=== PATIENT | female | born 1935 | race Caucasian/White ===

== ENCOUNTER 2022-06-07 13:09 | Emergency (ER) | payer MEDICARE | END 2022-06-07 14:46 | disposition home or self-care (01) | LOC: MADERS 13:09 | DX: S60.222A Contusion of left hand, initial encounter (principal); I25.10 Atherosclerotic heart disease of native coronary artery without angina pectoris; I11.0 Hypertensive heart disease with heart failure; I50.9 Heart failure, unspecified; E78.5 Hyperlipidemia, unspecified; W18.39XA Other fall on same level, initial encounter ==

== ENCOUNTER 2022-12-20 17:57 | Emergency (ER) | payer MEDICARE ==
[2022-12-20] MEDS ORDERED: Ondansetron PF 4 MG/2 ML Vial ONE (18:46)
[2022-12-20] MEDS ORDERED: Sodium Chloride 0.9% 500 ML ONE (18:46)
[2022-12-20 18:54] LABS: #Basophils 0.1 thou/uL (0.0-0.2); #Eosinphils 0.1 thou/uL (0.0-0.7); #Lymphocytes 1.5 thou/uL (1.20-3.40); #Monocytes 0.9 thou/uL (0.11-0.59); #Neutrophils 7.5 thou/uL (1.40-6.50); %Basophils 0.8 % (0.0-1.0); %Eosinophils 1.2 % (0.0-10.0); %Lymphocytes 15.2 % (21.0-51.0); %Monocytes 8.6 % (0.0-10.0); %Neutrophils 74.2 % (42.0-75.0); Hemoglobin 9.2 g/dL (12.0-16.0); Mean Corpuscular HGB CONC 33.2 g/dL (32.0-36.0); Mean Corpuscular Hemoglobin 30.6 pg (27.0-31.0); Mean Corpuscular Volume 92.3 fl (78.0-98.0); Mean Platelet Volume 7.5 fL (7.4-10.4); Platelet Count 259 10x3/uL (130-400); RBC Distribution Width 12.9 % (11.5-14.5); Red Blood Cell (RBC) Count 3.02 mill/uL (4.20-5.40); White Blood Cell (WBC) Count 10.1 10x3/uL (4.8-10.8)
[2022-12-20 19:12] LABS: Anion Gap 13 mmol/L (10-20); BUN (Urea Nitrogen) 29 mg/dL (9.8-20.1); Calc. Creatinine Clearance 0 mL/min (70-130); Calcium 8.3 mg/dL (7.8-10.44); Carbon Dioxide 24 mmol/L (23-31); Chloride 106 mmol/L (98-107); Estimated GFR 26; Glucose 81 mg/dL (83-110); Potassium 3.7 mmol/L (3.5-5.1); Sodium 139 mmol/L (136-145)
[2022-12-20 19:15] LABS: ALT (SGPT) Less than 7 U/L (8-55); AST (SGOT) 10 U/L (5-34); Albumin 3.4 g/dL (3.4-4.8); Alkaline Phosphatase 41 U/L (40-110); Bilirubin, Direct 0.2 mg/dL (0.1-0.3); Bilirubin, Total 0.3 mg/dL (0.2-1.2); Lipase 29 U/L (8-78); Protein, Total 5.4 g/dL (5.8-8.1)
[2022-12-20 19:32] LABS: CKMB 1.4 ng/mL (0-6.6)
[2022-12-20] MEDS ORDERED: Furosemide 40 MG/4 ML VIAL ONE (19:44)
[2022-12-20] MEDS ORDERED: Nitroglycerin 2% Ointment 1 INCH/1 GM Packet ONE (19:44)
[2022-12-20] MEDS ORDERED: Aspirin 325 MG TAB ONE (19:44)
[2022-12-20] MEDS ORDERED: Aspirin Chewable 81 MG TAB ONE (19:47)
[2022-12-20] MEDS ORDERED: hydrALAZINE 20 MG/ML VIAL ONE (20:53)
[2022-12-20 22:14] LABS: Bilirubin Negative (Negative); Blood, Urine Negative (Negative); Clarity Clear (Clear); Glucose, Urine (Dipstick) Negative (Negative); Ketone, Urine Negative (Negative); Leukocyte Negative (Negative); Nitrite Negative (Negative); Protein, Urine (Dipstick) 30 mg/dL (Neg-Trace); Specific Gravity, Urine 1.015 (1.005-1.030); Urobilinogen 0.2 mg/dL (Less than 2)
[2022-12-20 22:16] LABS: Bacteria/HPF None Seen HPF (None Seen); CAUTI Indications for Culture Urological Procedure; RBC/HPF 0-3 HPF (0-3); Squamous Epithelial 0-3 HPF (0-3); WBC/HPF None Seen HPF (0-3)
[2022-12-20 22:17] LABS: Urine Culture Reflex Yes Yes
[2022-12-20 22:25] LABS: CKMB 1.4 ng/mL (0-6.6)
[2022-12-21] MEDS ORDERED: Dicyclomine 10 MG CAP ONE (01:31)
[2022-12-21 07:38] LABS: #Basophils 0.1 thou/uL (0.0-0.2); #Eosinphils 0.1 thou/uL (0.0-0.7); #Lymphocytes 1.7 thou/uL (1.20-3.40); #Monocytes 0.8 thou/uL (0.11-0.59); #Neutrophils 6.5 thou/uL (1.40-6.50); %Basophils 0.9 % (0.0-1.0); %Eosinophils 1.5 % (0.0-10.0); %Lymphocytes 18.1 % (21.0-51.0); %Monocytes 8.6 % (0.0-10.0); %Neutrophils 70.8 % (42.0-75.0); Hemoglobin 9.7 g/dL (12.0-16.0); Mean Corpuscular HGB CONC 33.5 g/dL (32.0-36.0); Mean Corpuscular Hemoglobin 30.8 pg (27.0-31.0); Mean Corpuscular Volume 91.9 fl (78.0-98.0); Mean Platelet Volume 7.5 fL (7.4-10.4); Platelet Count 279 10x3/uL (130-400); RBC Distribution Width 12.8 % (11.5-14.5); Red Blood Cell (RBC) Count 3.16 mill/uL (4.20-5.40); White Blood Cell (WBC) Count 9.2 10x3/uL (4.8-10.8)
[2022-12-21 07:51] LABS: ALT (SGPT) Less than 7 U/L (8-55); AST (SGOT) 11 U/L (5-34); Albumin 3.4 g/dL (3.4-4.8); Alkaline Phosphatase 42 U/L (40-110); Anion Gap 14 mmol/L (10-20); BUN (Urea Nitrogen) 28 mg/dL (9.8-20.1); Bilirubin, Total 0.5 mg/dL (0.2-1.2); Calc. Creatinine Clearance 0 mL/min (70-130); Calcium 8.6 mg/dL (7.8-10.44); Carbon Dioxide 23 mmol/L (23-31); Chloride 107 mmol/L (98-107); Estimated GFR 25; Globulin 2.2 g/dL (2.4-3.5); Glucose 73 mg/dL (83-110); Potassium 3.4 mmol/L (3.5-5.1); Protein, Total 5.6 g/dL (5.8-8.1); Sodium 141 mmol/L (136-145)
[2022-12-21 08:10] LABS: CKMB 1.2 ng/mL (0-6.6)
[2022-12-21] MEDS ORDERED: Potassium Chloride 20 MEQ TAB ONE (09:12)
== END 2022-12-21 09:37 | disposition home or self-care (01) ==
LOC: MADERS 17:57
DX: I11.0 Hypertensive heart disease with heart failure (principal); I50.9 Heart failure, unspecified; I21.4 Non-ST elevation (NSTEMI) myocardial infarction; K62.89 Other specified diseases of anus and rectum; I25.10 Atherosclerotic heart disease of native coronary artery without angina pectoris; E78.5 Hyperlipidemia, unspecified; Z79.899 Other long term (current) drug therapy; Z79.82 Long term (current) use of aspirin
CPT/HCPCS: 36416; 71045; 74176; 80048; 80053; 80076; 81001; 82553; 83605; 83690; 83880; 84484; 85025; 87086; 93005; 96374; 96375; J0360; J1940; J2405; J7030

== ENCOUNTER 2023-05-27 18:47 | Emergency (ER) | payer MEDICARE ==
[2023-05-27] MEDS ORDERED: cloNIDine 0.1 MG TAB ONE (19:26)
[2023-05-27 20:42] LABS: Bilirubin Negative (Negative); Blood, Urine Negative (Negative); Clarity Clear (Clear); Glucose, Urine (Dipstick) Negative (Negative); Ketone, Urine Negative (Negative); Leukocyte Negative (Negative); Nitrite Negative (Negative); Protein, Urine (Dipstick) > or equal to 300 mg/dL (Neg-Trace); Urobilinogen 0.2 mg/dL (Less than 2); pH, Urine 5.5 (5.0-9.0)
[2023-05-27 20:49] LABS: CAUTI Indications for Culture Pelvic or flank pain
[2023-05-27 20:50] LABS: Bacteria/HPF Rare-Few HPF (None Seen); RBC/HPF 0-3 HPF (0-3); Squamous Epithelial 0-3 HPF (0-3); WBC/HPF 0-3 HPF (0-3)
[2023-05-27 20:51] LABS: Urine Culture Reflex No No
== END 2023-05-27 21:20 | disposition home or self-care (01) ==
LOC: MADERS 18:47
DX: M54.9 Dorsalgia, unspecified (principal); I11.0 Hypertensive heart disease with heart failure; I50.9 Heart failure, unspecified; E78.5 Hyperlipidemia, unspecified; Z79.82 Long term (current) use of aspirin; Z79.899 Other long term (current) drug therapy
CPT/HCPCS: 51701; 81001; 99283

== ENCOUNTER 2023-06-02 12:07 | Emergency (ER) | payer MEDICARE ==
[2023-06-02 13:01] LABS: #Eosinphils 0.1 thou/uL (0.0-0.7); #Lymphocytes 1.1 thou/uL (1.20-3.40); #Monocytes 0.5 thou/uL (0.11-0.59); #Neutrophils 4.5 thou/uL (1.40-6.50); %Basophils 0.7 % (0.0-1.0); %Eosinophils 1.1 % (0.0-10.0); %Monocytes 7.7 % (0.0-10.0); %Neutrophils 72.4 % (42.0-75.0); Hematocrit 32.4 % (36.0-47.0); Hemoglobin 10.6 g/dL (12.0-16.0); Mean Corpuscular HGB CONC 32.7 g/dL (32.0-36.0); Mean Corpuscular Volume 94.7 fl (78.0-98.0); Mean Platelet Volume 7.5 fL (7.4-10.4); Platelet Count 226 10x3/uL (130-400); RBC Distribution Width 15.1 % (11.5-14.5); Red Blood Cell (RBC) Count 3.42 mill/uL (4.20-5.40); White Blood Cell (WBC) Count 6.2 10x3/uL (4.8-10.8)
[2023-06-02 13:17] LABS: ALT (SGPT) Less than 7 U/L (8-55); AST (SGOT) 11 U/L (5-34); Albumin 4.1 g/dL (3.4-4.8); Alkaline Phosphatase 53 U/L (40-110); Anion Gap 19 mmol/L (10-20); BUN (Urea Nitrogen) 34 mg/dL (9.8-20.1); Bilirubin, Total 0.5 mg/dL (0.2-1.2); Calc. Creatinine Clearance 0 mL/min (70-130); Calcium 9.2 mg/dL (7.8-10.44); Carbon Dioxide 23 mmol/L (23-31); Chloride 105 mmol/L (98-107); Estimated GFR 23; Globulin 2.5 g/dL (2.4-3.5); Glucose 102 mg/dL (83-110); Lipase 16 U/L (8-78); Magnesium 2.3 mg/dL (1.6-2.6); Potassium 4.1 mmol/L (3.5-5.1); Protein, Total 6.6 g/dL (5.8-8.1); Sodium 143 mmol/L (136-145)
[2023-06-02 13:38] LABS: Bilirubin Small (Negative); Blood, Urine Negative (Negative); Clarity Slightly Cloudy (Clear); Glucose, Urine (Dipstick) Negative (Negative); Ketone, Urine Trace mg/dL (Negative); Leukocyte Trace (Negative); Nitrite Negative (Negative); Protein, Urine (Dipstick) > or equal to 300 mg/dL (Neg-Trace); Specific Gravity, Urine 1.025 (1.005-1.030); pH, Urine 5.5 (5.0-9.0)
[2023-06-02 13:48] LABS: CAUTI Indications for Culture Alt mental st,lethar; WBC/HPF 21-50 HPF (0-3)
[2023-06-02 13:49] LABS: Bacteria/HPF 3+ HPF (None Seen); Squamous Epithelial 0-3 HPF (0-3)
[2023-06-02] MEDS ORDERED: hydrALAZINE 20 MG/ML VIAL ONE (14:22)
[2023-06-02] MEDS ORDERED: Sodium Chloride 0.9% 100 ML ONE (14:23)
[2023-06-02] MEDS ORDERED: Mineral Oil ENEMA ONE (14:23)
[2023-06-02] MEDS ORDERED: cefTRIAXone (ROCEPHIN) 1 GM VIAL ONE (14:23)
[2023-06-02] MEDS ORDERED: diphenhydrAMINE 50 MG/ML VIAL ONE (16:05)
[2023-06-02] MEDS ORDERED: Ziprasidone 20 MG VIAL ONE (16:05)
[2023-06-02 18:44] LABS: Troponin I 0.051 ng/mL (< 0.028)
== END 2023-06-02 19:40 | disposition short-term general hospital (02) ==
LOC: MADERS 12:07
DX: K59.00 Constipation, unspecified (principal); N39.0 Urinary tract infection, site not specified; R62.7 Adult failure to thrive; I11.0 Hypertensive heart disease with heart failure; I50.9 Heart failure, unspecified; R77.8 Other specified abnormalities of plasma proteins; E78.5 Hyperlipidemia, unspecified; M19.90 Unspecified osteoarthritis, unspecified site; G20.A1 Parkinson's disease without dyskinesia, without mention of fluctuations; Z79.82 Long term (current) use of aspirin; Z79.899 Other long term (current) drug therapy
CPT/HCPCS: 51701; 70450; 71045; 74176; 80053; 81001; 83690; 83735; 83880; 84484; 85025; 87077; 87086; 87186; 93005; 96365; 96372; 96375; J0360; J0696; J1200; J3486; J3490

== ENCOUNTER 2023-06-21 22:15 | Inpatient (IN) | payer MEDICARE ==
[2023-06-22] MEDS ORDERED: hydrALAZINE 25 MG TAB PO PRN (05:32)
[2023-06-22] MEDS: Carvedilol 6.25 MG TAB PO SCH ×2 (07:49→17:15)
[2023-06-22] MEDS: Acetaminophen 500 MG TAB PO SCH ×3 (09:25→21:00)
[2023-06-22] MEDS: Amlodipine 5 MG TAB PO SCH (09:26)
[2023-06-22] MEDS: Carbidopa/Levodopa 25-100 mg Tablet PO SCH ×4 (09:26→21:00)
[2023-06-22] MEDS: Aspirin Chewable 81 MG TAB PO SCH (09:26)
[2023-06-22] MEDS: guaiFENesin ER 600 MG TAB PO SCH ×2 (09:26→21:00)
[2023-06-22] MEDS: Sodium Bicarbonate Tab 325 MG TAB PO SCH ×3 (09:26→21:00)
[2023-06-22] MEDS: Cholecalciferol 1,000 UNITS (25 MCG) TAB PO SCH (09:27)
[2023-06-22] MEDS: Clopidogrel Bisulfate 75 MG TAB PO SCH (09:27)
[2023-06-22] MEDS: Atorvastatin Calcium 10 MG TAB PO SCH (21:00)
[2023-06-22] MEDS ORDERED: hydrALAZINE 25 MG TAB PO SCH (21:00)
[2023-06-22] MEDS: Melatonin 3 MG TAB PO SCH (21:00)
[2023-06-22] MEDS: hydrALAZINE 25 MG TAB PO SCH (21:01)
[2023-06-23] MEDS: guaiFENesin ER 600 MG TAB PO SCH (09:16)
[2023-06-23] MEDS: Sodium Bicarbonate Tab 325 MG TAB PO SCH ×3 (09:16→21:10)
[2023-06-23] MEDS: Aspirin Chewable 81 MG TAB PO SCH (09:16)
[2023-06-23] MEDS: hydrALAZINE 25 MG TAB PO SCH ×3 (09:16→21:08)
[2023-06-23] MEDS: Clopidogrel Bisulfate 75 MG TAB PO SCH (09:16)
[2023-06-23] MEDS: Amlodipine 5 MG TAB PO SCH (09:17)
[2023-06-23] MEDS: Carvedilol 6.25 MG TAB PO SCH ×2 (09:17→16:39)
[2023-06-23] MEDS: Acetaminophen 500 MG TAB PO SCH ×3 (09:17→21:08)
[2023-06-23] MEDS: Carbidopa/Levodopa 25-100 mg Tablet PO SCH ×4 (09:17→21:09)
[2023-06-23] MEDS: Cholecalciferol 1,000 UNITS (25 MCG) TAB PO SCH (09:17)
[2023-06-23] MEDS: Atorvastatin Calcium 10 MG TAB PO SCH (21:08)
[2023-06-23] MEDS: GUAIFENESIN SF SOLN 200 MG/10 ML UDCUP PO SCH (21:09)
[2023-06-23] MEDS: Melatonin 3 MG TAB PO SCH (21:09)
[2023-06-24] MEDS ORDERED: Senokot S 8.6-50 MG TAB PO SCH (02:15)
[2023-06-24] MEDS: Polyethylene Glycol 3350 17 GM Packet PO PRN ×2 (02:21→15:34)
[2023-06-24] MEDS: Hyoscyamine SL 0.125 MG TAB SL PRN ×2 (02:21→07:46)
[2023-06-24] MEDS: Carvedilol 6.25 MG TAB PO SCH ×2 (07:46→18:05)
[2023-06-24] MEDS: Acetaminophen 500 MG TAB PO SCH ×3 (08:40→21:58)
[2023-06-24] MEDS: Sodium Bicarbonate Tab 325 MG TAB PO SCH ×3 (08:41→21:57)
[2023-06-24] MEDS: Aspirin Chewable 81 MG TAB PO SCH (08:41)
[2023-06-24] MEDS: Cholecalciferol 1,000 UNITS (25 MCG) TAB PO SCH (08:42)
[2023-06-24] MEDS: hydrALAZINE 25 MG TAB PO SCH ×3 (08:42→21:57)
[2023-06-24] MEDS: Carbidopa/Levodopa 25-100 mg Tablet PO SCH ×4 (08:42→21:58)
[2023-06-24] MEDS: Senokot S 8.6-50 MG TAB PO SCH ×2 (08:42→21:57)
[2023-06-24] MEDS: GUAIFENESIN SF SOLN 200 MG/10 ML UDCUP PO SCH ×2 (08:42→21:58)
[2023-06-24] MEDS: Amlodipine 5 MG TAB PO SCH (08:42)
[2023-06-24] MEDS: Clopidogrel Bisulfate 75 MG TAB PO SCH (08:42)
[2023-06-24] MEDS ORDERED: Mineral Oil ENEMA PR PRN (15:12)
[2023-06-24] MEDS ORDERED: Ipratropium/Albuterol 3 ML NEB ONE (16:41)
[2023-06-24 17:47] LABS: SARS-CoV-2 NAA Rapid Test Not Detected (NotDetected)
[2023-06-24] MEDS: Atorvastatin Calcium 10 MG TAB PO SCH (21:57)
[2023-06-24] MEDS: Melatonin 3 MG TAB PO SCH (21:58)
[2023-06-25] MEDS: Hyoscyamine SL 0.125 MG TAB SL PRN ×3 (01:48→12:35)
[2023-06-25] MEDS: Amlodipine 5 MG TAB PO SCH (07:26)
[2023-06-25] MEDS: Acetaminophen 500 MG TAB PO SCH ×3 (07:26→21:20)
[2023-06-25] MEDS: Carvedilol 6.25 MG TAB PO SCH ×2 (07:28→17:07)
[2023-06-25] MEDS: hydrALAZINE 25 MG TAB PO SCH ×3 (07:28→20:06)
[2023-06-25] MEDS: Sodium Bicarbonate Tab 325 MG TAB PO SCH ×3 (08:18→21:19)
[2023-06-25] MEDS: Senokot S 8.6-50 MG TAB PO SCH ×2 (08:18→21:20)
[2023-06-25] MEDS: Cholecalciferol 1,000 UNITS (25 MCG) TAB PO SCH (08:18)
[2023-06-25] MEDS: Aspirin Chewable 81 MG TAB PO SCH (08:18)
[2023-06-25] MEDS: Clopidogrel Bisulfate 75 MG TAB PO SCH (08:19)
[2023-06-25] MEDS: GUAIFENESIN SF SOLN 200 MG/10 ML UDCUP PO SCH ×2 (08:19→16:59)
[2023-06-25] MEDS: Carbidopa/Levodopa 25-100 mg Tablet PO SCH ×4 (08:19→21:20)
[2023-06-25] MEDS ORDERED: Mag-Al Plus 1200 MG/1200 MG/120 MG/30 ML UDCUP PO PRN (13:32)
[2023-06-25 14:02] LABS: #Basophils 0.1 thou/uL (0.0-0.2); #Lymphocytes 0.8 thou/uL (1.20-3.40); #Monocytes 0.5 thou/uL (0.11-0.59); #Neutrophils 6.9 thou/uL (1.40-6.50); %Basophils 0.7 % (0.0-1.0); %Eosinophils 0.3 % (0.0-10.0); %Lymphocytes 9.7 % (21.0-51.0); %Monocytes 5.5 % (0.0-10.0); %Neutrophils 83.8 % (42.0-75.0); Hematocrit 30.2 % (36.0-47.0); Hemoglobin 9.8 g/dL (12.0-16.0); Mean Corpuscular HGB CONC 32.5 g/dL (32.0-36.0); Mean Corpuscular Hemoglobin 31.5 pg (27.0-31.0); Mean Corpuscular Volume 97.1 fl (78.0-98.0); Mean Platelet Volume 6.4 fL (7.4-10.4); Platelet Count 315 10x3/uL (130-400); RBC Distribution Width 16.3 % (11.5-14.5); Red Blood Cell (RBC) Count 3.11 mill/uL (4.20-5.40); White Blood Cell (WBC) Count 8.3 10x3/uL (4.8-10.8)
[2023-06-25 14:13] LABS: ALT (SGPT) Less than 7 U/L (8-55); AST (SGOT) 14 U/L (5-34); Albumin 3.6 g/dL (3.4-4.8); Alkaline Phosphatase 45 U/L (40-110); Anion Gap 16 mmol/L (10-20); BUN (Urea Nitrogen) 33 mg/dL (9.8-20.1); Bilirubin, Total 0.4 mg/dL (0.2-1.2); Calc. Creatinine Clearance 19 mL/min (70-130); Calcium 8.4 mg/dL (7.8-10.44); Carbon Dioxide 16 mmol/L (23-31); Chloride 106 mmol/L (98-107); Estimated GFR 27; Globulin 1.9 g/dL (2.4-3.5); Glucose 129 mg/dL (83-110); Potassium 4.5 mmol/L (3.5-5.1); Protein, Total 5.5 g/dL (5.8-8.1); Sodium 133 mmol/L (136-145)
[2023-06-25] MEDS: Ondansetron ODT 4 MG TAB SL PRN ×2 (16:11→21:19)
[2023-06-25] MEDS: Hyoscyamine SL 0.125 MG TAB SL SCH ×2 (16:59→21:20)
[2023-06-25] MEDS: Melatonin 3 MG TAB PO SCH (21:19)
[2023-06-25] MEDS: Atorvastatin Calcium 10 MG TAB PO SCH (21:20)
[2023-06-26] MEDS: GUAIFENESIN SF SOLN 200 MG/10 ML UDCUP PO SCH ×5 (00:16→23:17)
[2023-06-26] MEDS: Acetaminophen 500 MG TAB PO SCH ×3 (08:19→19:53)
[2023-06-26] MEDS: Carbidopa/Levodopa 25-100 mg Tablet PO SCH ×4 (08:19→19:53)
[2023-06-26] MEDS: Senokot S 8.6-50 MG TAB PO SCH ×2 (08:20→19:53)
[2023-06-26] MEDS: hydrALAZINE 25 MG TAB PO SCH ×3 (08:20→19:53)
[2023-06-26] MEDS: Cholecalciferol 1,000 UNITS (25 MCG) TAB PO SCH (08:20)
[2023-06-26] MEDS: Sodium Bicarbonate Tab 325 MG TAB PO SCH ×3 (08:21→19:53)
[2023-06-26] MEDS: Amlodipine 5 MG TAB PO SCH (08:21)
[2023-06-26] MEDS: Clopidogrel Bisulfate 75 MG TAB PO SCH (08:21)
[2023-06-26] MEDS: Hyoscyamine SL 0.125 MG TAB SL SCH ×4 (08:21→19:52)
[2023-06-26] MEDS: Aspirin Chewable 81 MG TAB PO SCH (08:21)
[2023-06-26] MEDS: Carvedilol 6.25 MG TAB PO SCH ×2 (08:22→17:05)
[2023-06-26] MEDS: Ondansetron ODT 4 MG TAB SL PRN (18:31)
[2023-06-26] MEDS: Ipratropium/Albuterol 3 ML NEB NEB PRN (18:34)
[2023-06-26] MEDS: Melatonin 3 MG TAB PO SCH (19:52)
[2023-06-26] MEDS: Atorvastatin Calcium 10 MG TAB PO SCH (19:53)
[2023-06-27] MEDS: Ondansetron ODT 4 MG TAB SL PRN (04:53)
[2023-06-27] MEDS: GUAIFENESIN SF SOLN 200 MG/10 ML UDCUP PO SCH ×3 (05:28→17:35)
[2023-06-27] MEDS: Sodium Bicarbonate Tab 325 MG TAB PO SCH ×3 (08:23→20:17)
[2023-06-27] MEDS: Senokot S 8.6-50 MG TAB PO SCH ×2 (08:24→20:17)
[2023-06-27] MEDS: Carvedilol 6.25 MG TAB PO SCH ×2 (08:24→17:35)
[2023-06-27] MEDS: Cholecalciferol 1,000 UNITS (25 MCG) TAB PO SCH (08:24)
[2023-06-27] MEDS: Hyoscyamine SL 0.125 MG TAB SL SCH ×4 (08:24→20:17)
[2023-06-27] MEDS: hydrALAZINE 25 MG TAB PO SCH ×3 (08:24→20:17)
[2023-06-27] MEDS: Clopidogrel Bisulfate 75 MG TAB PO SCH (08:25)
[2023-06-27] MEDS: Carbidopa/Levodopa 25-100 mg Tablet PO SCH ×4 (08:25→20:17)
[2023-06-27] MEDS: Acetaminophen 500 MG TAB PO SCH ×3 (08:25→20:18)
[2023-06-27] MEDS: Aspirin Chewable 81 MG TAB PO SCH (08:25)
[2023-06-27] MEDS: Amlodipine 5 MG TAB PO SCH (08:25)
[2023-06-27] MEDS: Melatonin 3 MG TAB PO SCH (20:16)
[2023-06-27] MEDS: Atorvastatin Calcium 10 MG TAB PO SCH (20:17)
[2023-06-28] MEDS: GUAIFENESIN SF SOLN 200 MG/10 ML UDCUP PO SCH ×5 (01:21→23:05)
[2023-06-28] MEDS: Carbidopa/Levodopa 25-100 mg Tablet PO SCH ×4 (08:08→20:14)
[2023-06-28] MEDS: Cholecalciferol 1,000 UNITS (25 MCG) TAB PO SCH (08:08)
[2023-06-28] MEDS: Aspirin Chewable 81 MG TAB PO SCH (08:09)
[2023-06-28] MEDS: Sodium Bicarbonate Tab 325 MG TAB PO SCH ×3 (08:09→20:14)
[2023-06-28] MEDS: hydrALAZINE 25 MG TAB PO SCH ×3 (08:09→20:14)
[2023-06-28] MEDS: Hyoscyamine SL 0.125 MG TAB SL SCH ×4 (08:09→20:14)
[2023-06-28] MEDS: Clopidogrel Bisulfate 75 MG TAB PO SCH (08:09)
[2023-06-28] MEDS: Carvedilol 6.25 MG TAB PO SCH ×2 (08:15→17:05)
[2023-06-28] MEDS: Amlodipine 5 MG TAB PO SCH (08:15)
[2023-06-28] MEDS: Acetaminophen 500 MG TAB PO SCH ×3 (08:15→20:13)
[2023-06-28] MEDS: Senokot S 8.6-50 MG TAB PO SCH ×2 (08:15→20:14)
[2023-06-28] MEDS ORDERED: Lantiseptic Ointment 130 GM JAR TOP PRN (09:32)
[2023-06-28] MEDS: Lantiseptic Ointment 130 GM JAR TOP SCH (20:12)
[2023-06-28] MEDS: Atorvastatin Calcium 10 MG TAB PO SCH (20:13)
[2023-06-28] MEDS: Melatonin 3 MG TAB PO SCH (20:14)
[2023-06-29] MEDS ORDERED: ALPRAZolam 0.5 MG TAB PO SCH (01:45)
[2023-06-29] MEDS: Ondansetron ODT 4 MG TAB SL PRN (01:49)
[2023-06-29] MEDS: GUAIFENESIN SF SOLN 200 MG/10 ML UDCUP PO SCH ×4 (05:08→23:30)
[2023-06-29 05:27] LABS: Hematocrit 25.4 % (36.0-47.0); Hemoglobin 8.4 g/dL (12.0-16.0); Mean Corpuscular HGB CONC 33.1 g/dL (32.0-36.0); Mean Corpuscular Hemoglobin 31.9 pg (27.0-31.0); Mean Corpuscular Volume 96.4 fl (78.0-98.0); Mean Platelet Volume 5.8 fL (7.4-10.4); Platelet Count 262 10x3/uL (130-400); RBC Distribution Width 16.9 % (11.5-14.5); Red Blood Cell (RBC) Count 2.64 mill/uL (4.20-5.40); White Blood Cell (WBC) Count 6.7 10x3/uL (4.8-10.8)
[2023-06-29 05:39] LABS: Anion Gap 12 mmol/L (10-20); BUN (Urea Nitrogen) 35 mg/dL (9.8-20.1); Calc. Creatinine Clearance 16 mL/min (70-130); Calcium 8.1 mg/dL (7.8-10.44); Carbon Dioxide 19 mmol/L (23-31); Chloride 110 mmol/L (98-107); Estimated GFR 23; Glucose 75 mg/dL (83-110); Potassium 3.8 mmol/L (3.5-5.1); Sodium 137 mmol/L (136-145)
[2023-06-29] MEDS: Lantiseptic Ointment 130 GM JAR TOP SCH ×2 (09:00→20:39)
[2023-06-29] MEDS: Hyoscyamine SL 0.125 MG TAB SL SCH ×4 (13:43→20:28)
[2023-06-29] MEDS: Carbidopa/Levodopa 25-100 mg Tablet PO SCH ×4 (13:44→20:28)
[2023-06-29] MEDS: Acetaminophen 500 MG TAB PO SCH ×3 (14:21→20:30)
[2023-06-29] MEDS: Carvedilol 6.25 MG TAB PO SCH ×2 (14:21→16:59)
[2023-06-29] MEDS: Cholecalciferol 1,000 UNITS (25 MCG) TAB PO SCH (14:22)
[2023-06-29] MEDS: Aspirin Chewable 81 MG TAB PO SCH (14:22)
[2023-06-29] MEDS: Amlodipine 5 MG TAB PO SCH (14:22)
[2023-06-29] MEDS: Clopidogrel Bisulfate 75 MG TAB PO SCH (14:22)
[2023-06-29] MEDS: hydrALAZINE 25 MG TAB PO SCH ×3 (14:23→20:29)
[2023-06-29] MEDS: Sodium Bicarbonate Tab 325 MG TAB PO SCH ×3 (14:24→20:28)
[2023-06-29] MEDS: Senokot S 8.6-50 MG TAB PO SCH ×2 (14:24→20:28)
[2023-06-29] MEDS: Atorvastatin Calcium 10 MG TAB PO SCH (20:29)
[2023-06-29] MEDS: Melatonin 3 MG TAB PO SCH (20:30)
[2023-06-30] MEDS: GUAIFENESIN SF SOLN 200 MG/10 ML UDCUP PO SCH ×4 (05:43→23:39)
[2023-06-30] MEDS: Senokot S 8.6-50 MG TAB PO SCH ×2 (09:02→20:09)
[2023-06-30] MEDS: traMADol HCl 50 MG TAB PO PRN ×2 (09:03→17:44)
[2023-06-30] MEDS: Carbidopa/Levodopa 25-100 mg Tablet PO SCH ×4 (09:04→20:11)
[2023-06-30] MEDS: Cholecalciferol 1,000 UNITS (25 MCG) TAB PO SCH (09:04)
[2023-06-30] MEDS: Hyoscyamine SL 0.125 MG TAB SL SCH ×4 (09:04→20:09)
[2023-06-30] MEDS: Carvedilol 6.25 MG TAB PO SCH ×2 (09:04→17:44)
[2023-06-30] MEDS: hydrALAZINE 25 MG TAB PO SCH ×3 (09:05→20:09)
[2023-06-30] MEDS: Amlodipine 5 MG TAB PO SCH (09:05)
[2023-06-30] MEDS: Acetaminophen 500 MG TAB PO SCH ×3 (09:05→20:10)
[2023-06-30] MEDS: Lantiseptic Ointment 130 GM JAR TOP SCH ×2 (09:06→20:11)
[2023-06-30] MEDS: Sodium Bicarbonate Tab 325 MG TAB PO SCH ×3 (09:06→20:09)
[2023-06-30] MEDS: Ondansetron ODT 4 MG TAB SL PRN (17:59)
[2023-06-30] MEDS: Melatonin 3 MG TAB PO SCH (20:09)
[2023-06-30] MEDS: Atorvastatin Calcium 10 MG TAB PO SCH (20:10)
[2023-07-01] MEDS: traMADol HCl 50 MG TAB PO PRN ×3 (02:33→23:57)
[2023-07-01] MEDS: GUAIFENESIN SF SOLN 200 MG/10 ML UDCUP PO SCH ×4 (05:55→23:57)
[2023-07-01] MEDS: Hyoscyamine SL 0.125 MG TAB SL SCH ×4 (09:00→20:21)
[2023-07-01] MEDS: Cholecalciferol 1,000 UNITS (25 MCG) TAB PO SCH (09:00)
[2023-07-01] MEDS: Sodium Bicarbonate Tab 325 MG TAB PO SCH ×3 (09:00→20:21)
[2023-07-01] MEDS: Amlodipine 5 MG TAB PO SCH (09:01)
[2023-07-01] MEDS: hydrALAZINE 25 MG TAB PO SCH ×3 (09:01→20:21)
[2023-07-01] MEDS: Carbidopa/Levodopa 25-100 mg Tablet PO SCH ×4 (09:02→20:22)
[2023-07-01] MEDS: Carvedilol 6.25 MG TAB PO SCH ×2 (09:02→17:40)
[2023-07-01] MEDS: Acetaminophen 500 MG TAB PO SCH ×3 (09:02→20:23)
[2023-07-01] MEDS: Lantiseptic Ointment 130 GM JAR TOP SCH ×2 (09:05→21:00)
[2023-07-01] MEDS: Senokot S 8.6-50 MG TAB PO SCH ×2 (09:05→20:21)
[2023-07-01] MEDS: Atorvastatin Calcium 10 MG TAB PO SCH (20:21)
[2023-07-01] MEDS: Melatonin 3 MG TAB PO SCH (20:22)
[2023-07-02] MEDS: GUAIFENESIN SF SOLN 200 MG/10 ML UDCUP PO SCH ×4 (05:15→19:32)
[2023-07-02] MEDS: Amlodipine 5 MG TAB PO SCH (08:27)
[2023-07-02] MEDS: Senokot S 8.6-50 MG TAB PO SCH ×2 (08:27→22:30)
[2023-07-02] MEDS: Cholecalciferol 1,000 UNITS (25 MCG) TAB PO SCH (08:27)
[2023-07-02] MEDS: Hyoscyamine SL 0.125 MG TAB SL SCH ×5 (08:27→19:35)
[2023-07-02] MEDS: Carvedilol 6.25 MG TAB PO SCH ×2 (08:28→17:42)
[2023-07-02] MEDS: hydrALAZINE 25 MG TAB PO SCH ×3 (08:28→20:04)
[2023-07-02] MEDS: Carbidopa/Levodopa 25-100 mg Tablet PO SCH ×4 (08:28→20:03)
[2023-07-02] MEDS: Sodium Bicarbonate Tab 325 MG TAB PO SCH ×3 (08:28→20:05)
[2023-07-02] MEDS: Acetaminophen 500 MG TAB PO SCH ×3 (08:28→19:32)
[2023-07-02] MEDS: Lantiseptic Ointment 130 GM JAR TOP SCH ×2 (08:29→20:05)
[2023-07-02] MEDS: Atorvastatin Calcium 10 MG TAB PO SCH (20:03)
[2023-07-02] MEDS: Melatonin 3 MG TAB PO SCH (20:03)
[2023-07-03 05:49] LABS: #Eosinphils 0.1 thou/uL (0.0-0.7); #Lymphocytes 0.9 thou/uL (1.20-3.40); #Monocytes 0.5 thou/uL (0.11-0.59); %Basophils 0.5 % (0.0-1.0); %Eosinophils 2.6 % (0.0-10.0); %Lymphocytes 18.8 % (21.0-51.0); %Monocytes 11.6 % (0.0-10.0); %Neutrophils 66.4 % (42.0-75.0); Hemoglobin 8.6 g/dL (12.0-16.0); Mean Corpuscular Hemoglobin 31.5 pg (27.0-31.0); Mean Corpuscular Volume 98.4 fl (78.0-98.0); Mean Platelet Volume 5.8 fL (7.4-10.4); Platelet Count 246 10x3/uL (130-400); RBC Distribution Width 17.3 % (11.5-14.5); Red Blood Cell (RBC) Count 2.74 mill/uL (4.20-5.40); White Blood Cell (WBC) Count 4.6 10x3/uL (4.8-10.8)
[2023-07-03 06:08] LABS: Anion Gap 13 mmol/L (10-20); BUN (Urea Nitrogen) 27 mg/dL (9.8-20.1); Calc. Creatinine Clearance 19 mL/min (70-130); Calcium 8.2 mg/dL (7.8-10.44); Carbon Dioxide 18 mmol/L (23-31); Chloride 110 mmol/L (98-107); Estimated GFR 29; Glucose 67 mg/dL (83-110); Potassium 3.6 mmol/L (3.5-5.1); Sodium 137 mmol/L (136-145)
[2023-07-03] MEDS: GUAIFENESIN SF SOLN 200 MG/10 ML UDCUP PO SCH ×3 (06:25→17:37)
[2023-07-03] MEDS: Sodium Bicarbonate Tab 325 MG TAB PO SCH ×3 (08:28→21:59)
[2023-07-03] MEDS: Cholecalciferol 1,000 UNITS (25 MCG) TAB PO SCH (08:28)
[2023-07-03] MEDS: Carbidopa/Levodopa 25-100 mg Tablet PO SCH ×4 (08:29→21:59)
[2023-07-03] MEDS: Amlodipine 5 MG TAB PO SCH (08:29)
[2023-07-03] MEDS: Carvedilol 6.25 MG TAB PO SCH ×2 (08:29→17:37)
[2023-07-03] MEDS: Senokot S 8.6-50 MG TAB PO SCH ×2 (08:29→21:59)
[2023-07-03] MEDS: hydrALAZINE 25 MG TAB PO SCH ×3 (08:30→21:59)
[2023-07-03] MEDS: Lantiseptic Ointment 130 GM JAR TOP SCH ×2 (08:30→22:00)
[2023-07-03] MEDS: Acetaminophen 500 MG TAB PO SCH ×3 (08:31→21:58)
[2023-07-03] MEDS: Hyoscyamine SL 0.125 MG TAB SL SCH ×3 (12:09→21:59)
[2023-07-03] MEDS: Melatonin 3 MG TAB PO SCH (21:59)
[2023-07-03] MEDS: Atorvastatin Calcium 10 MG TAB PO SCH (21:59)
[2023-07-04] MEDS: GUAIFENESIN SF SOLN 200 MG/10 ML UDCUP PO SCH ×4 (01:11→18:15)
[2023-07-04] MEDS: Polyethylene Glycol 3350 17 GM Packet PO PRN ×2 (05:46→20:58)
[2023-07-04] MEDS: Sodium Bicarbonate Tab 325 MG TAB PO SCH ×3 (08:16→21:00)
[2023-07-04] MEDS: Acetaminophen 500 MG TAB PO SCH ×3 (08:16→21:01)
[2023-07-04] MEDS: Senokot S 8.6-50 MG TAB PO SCH ×2 (08:16→21:02)
[2023-07-04] MEDS: Amlodipine 5 MG TAB PO SCH (08:17)
[2023-07-04] MEDS: hydrALAZINE 25 MG TAB PO SCH ×2 (08:17→15:57)
[2023-07-04] MEDS: Carvedilol 6.25 MG TAB PO SCH ×2 (08:17→18:15)
[2023-07-04] MEDS: Carbidopa/Levodopa 25-100 mg Tablet PO SCH ×4 (08:17→21:18)
[2023-07-04] MEDS: Lantiseptic Ointment 130 GM JAR TOP SCH ×2 (08:17→21:03)
[2023-07-04] MEDS: Cholecalciferol 1,000 UNITS (25 MCG) TAB PO SCH (08:17)
[2023-07-04] MEDS: Hyoscyamine SL 0.125 MG TAB SL SCH ×4 (08:17→21:18)
[2023-07-04] MEDS: traMADol HCl 50 MG TAB PO PRN (14:08)
[2023-07-04] MEDS ORDERED: hydrALAZINE 25 MG TAB PO SCH (21:00)
[2023-07-04] MEDS: Melatonin 3 MG TAB PO SCH (21:00)
[2023-07-04] MEDS: Atorvastatin Calcium 10 MG TAB PO SCH (21:01)
[2023-07-05] MEDS: GUAIFENESIN SF SOLN 200 MG/10 ML UDCUP PO SCH ×5 (00:10→23:19)
[2023-07-05] MEDS: Amlodipine 5 MG TAB PO SCH (08:02)
[2023-07-05] MEDS: Hyoscyamine SL 0.125 MG TAB SL SCH ×4 (08:03→20:52)
[2023-07-05] MEDS: Carvedilol 6.25 MG TAB PO SCH ×2 (08:04→16:50)
[2023-07-05] MEDS: Carbidopa/Levodopa 25-100 mg Tablet PO SCH ×4 (08:04→20:52)
[2023-07-05] MEDS ORDERED: hydrALAZINE 25 MG TAB PO SCH (09:00)
[2023-07-05] MEDS: Acetaminophen 500 MG TAB PO SCH ×3 (09:00→20:50)
[2023-07-05] MEDS: Senokot S 8.6-50 MG TAB PO SCH ×2 (09:00→20:51)
[2023-07-05] MEDS: Lantiseptic Ointment 130 GM JAR TOP SCH ×2 (09:00→21:20)
[2023-07-05] MEDS: Cholecalciferol 1,000 UNITS (25 MCG) TAB PO SCH (09:00)
[2023-07-05] MEDS: Sodium Bicarbonate Tab 325 MG TAB PO SCH ×3 (10:11→20:51)
[2023-07-05 11:35] VITALS: BMI 21.2
[2023-07-05] MEDS: hydrALAZINE 25 MG TAB PO SCH ×2 (14:38→20:52)
[2023-07-05] MEDS ORDERED: Senokot S 8.6-50 MG TAB PO SCH (15:30)
[2023-07-05] MEDS: Polyethylene Glycol 3350 17 GM Packet PO PRN (16:50)
[2023-07-05] MEDS: Atorvastatin Calcium 10 MG TAB PO SCH (20:51)
[2023-07-05] MEDS: Melatonin 3 MG TAB PO SCH (20:52)
[2023-07-06] MEDS: GUAIFENESIN SF SOLN 200 MG/10 ML UDCUP PO SCH (05:08)
[2023-07-06] MEDS: Ipratropium/Albuterol 3 ML NEB NEB PRN (06:44)
[2023-07-06] MEDS: Carbidopa/Levodopa 25-100 mg Tablet PO SCH (08:16)
[2023-07-06] MEDS: Carvedilol 6.25 MG TAB PO SCH (08:16)
[2023-07-06] MEDS: Hyoscyamine SL 0.125 MG TAB SL SCH (08:16)
[2023-07-06] MEDS: Senokot S 8.6-50 MG TAB PO SCH (08:16)
[2023-07-06] MEDS: hydrALAZINE 25 MG TAB PO SCH (08:16)
[2023-07-06] MEDS: Amlodipine 5 MG TAB PO SCH (08:16)
[2023-07-06] MEDS ORDERED: Clopidogrel Bisulfate 75 MG TAB PO SCH (09:00)
[2023-07-06] MEDS ORDERED: Aspirin Chewable 81 MG TAB PO SCH (09:00)
[2023-07-06] MEDS: Cholecalciferol 1,000 UNITS (25 MCG) TAB PO SCH (09:51)
[2023-07-06] MEDS: Sodium Bicarbonate Tab 325 MG TAB PO SCH (09:52)
[2023-07-06] MEDS: Lantiseptic Ointment 130 GM JAR TOP SCH (09:54)
[2023-07-06] MEDS: Acetaminophen 500 MG TAB PO SCH (11:00)
[2023-07-06 11:48] VITALS: BP 136/69; TEMP 97.7
== END 2023-07-06 11:50 | DRG 948 ==
LOC: MADMS 22:15
PROVIDERS: ADMIT Family Medicine; ATTEND Family Medicine
DX: R53.1 Weakness (principal); I50.32 Chronic diastolic (congestive) heart failure; N18.4 Chronic kidney disease, stage 4 (severe); I13.0 Hypertensive heart and chronic kidney disease with heart failure and stage 1 through stage 4 chronic kidney disease, or unspecified chronic kidney disease; R53.81 Other malaise; I25.10 Atherosclerotic heart disease of native coronary artery without angina pectoris; K59.09 Other constipation; I73.9 Peripheral vascular disease, unspecified; G20.A1 Parkinson's disease without dyskinesia, without mention of fluctuations; G89.29 Other chronic pain; Z79.899 Other long term (current) drug therapy; Z95.820 Peripheral vascular angioplasty status with implants and grafts; Z88.2 Allergy status to sulfonamides; Z88.8 Allergy status to other drugs, medicaments and biological substances; Z79.82 Long term (current) use of aspirin; Z90.710 Acquired absence of both cervix and uterus; Z90.49 Acquired absence of other specified parts of digestive tract; Z98.890 Other specified postprocedural states; Z87.891 Personal history of nicotine dependence; Z11.52 Encounter for screening for COVID-19
CPT/HCPCS: 36415; 80048; 80053; 85025; 85027; J7620; Q0162